=== PATIENT | male | born 1970 | race Caucasian/White ===

== ENCOUNTER 2024-10-29 16:55 | Emergency (ER) | payer OTHER ==
[2024-10-29] MEDS ORDERED: DUONEB 0.5-3 MG/3 ml Neb IH ONE (17:03)
[2024-10-29 17:07] VITALS: TEMP 97.5
[2024-10-29] MEDS: DUONEB 0.5-3 MG/3 ml Neb IH ONE (17:08)
--- NOTE | 2024-10-29 17:10 | ERPHSYRPT ---
<JASMYNE TAVERASAyush - Last Filed: 10/29/24 20:51> - History of Present Illness Source: patient Exam Limitations: no limitations Timing/Duration: day(s) (4) Activities at Onset: none Severity of Dyspnea-Max: severe Severity of Dyspnea-Current: severe Possible Cause: frequent episodes, chronic episodes Modifying Factors: Improves With: oxygen. Worsens With: activity, exertion Associated Symptoms: constant, cough, loss of appetite, wheezing, productive cough, No chest pain/discomfort, No edema, No fever, No insomnia, No hemoptysis <STAS LAST - Last Filed: 11/05/24 21:32> - History of Present Illness Time Seen by Provider: 10/29/24 17:10 Physician History: The patient, with pneumoconiosis, presents with shortness of breath. The patient has been experiencing worsening shortness of breath that began earlier in the week. He has not been as active recently due to the process of retiring, which he believes may have contributed to his symptoms. He is currently on oxygen, which alleviates the shortness of breath. He has no recent viral infections and has never required intubation for lung issues, only during a past shoulder surgery. 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 A PET scan was also clear. He does not use oxygen at home but uses a CPAP machine at night. He mentions a decrease in appetite, feeling hungry but deterred from cooking due to shortness of breath. He suspects he might be dehydrated or not eating properly. He is able to cough up a little phlegm, which appears normal with no blood present. (STAS LAST) Allergies/Adverse Reactions: azithromycin Allergy (Intermediate, Verified 10/30/24 05:26) had some redness to chest and increased shortness of breath after administration of this medication on 10/29/24 - unsure if this is the reason for his symptoms or not. he also got hydralizine around same time hydralazine Allergy (Intermediate, Verified 10/30/24 05:26) had some redness to chest and increased shortness of breath after administration of this medication on 10/29/24 Home Medications: Albuterol 8 gm Mdi Hfa [Ventolin Hfa MDI] 8 gm IH QID 10/29/24 [History] Fluticasone/Umeclidin/Vilanter [Trelegy Ellipta 200-62.5-25] 1 ea DAILY 10/29/24 [History] - Review of Systems All Other Systems: Reviewed and Negative <STAS LAST - Last Filed: 11/05/24 21:32> - Physical Exam General Appearance: moderate distress, thin Neck Exam: normal inspection Respiratory Exam: respiratory distress, airway intact, accessory muscle use, wheezing Cardiovascular/Chest Exam: normal heart sounds, regular rate/rhythm Abdominal/Gastrointestinal Exam: soft, No tenderness, No distention, No mass, No guarding, No rebound Neurologic Exam: alert, oriented x 3, cooperative Skin Exam: normal color, warm, dry, No rash SpO2 Interpretation: hypoxic SpO2: 67 O2 Delivery: Nasal Cannula <STAS LAST - Last Filed: 11/05/24 21:32> - Nursing Vital Signs Nursing Vital Signs: Initial Vital Signs Temperature 97.5 F 10/29/24 17:00 Pulse Rate 116 H 10/29/24 17:00 Respiratory Rate 32 H 10/29/24 17:00 Blood Pressure 174/125 10/29/24 17:00 O2 Sat by Pulse Oximetry 67 L 10/29/24 17:00 Pain Scale Pain Intensity 0 Procedures - Central Line Central Line Lumen: triple Central Line Procedure: chlorahexadine prep, sterile drapes applied, sterile dressing applied Central Line Postion: subclavian (R) Anesthesia: 2% Lidocaine cc's of anesthesia: 4 Complications: none Central Line Post Position: sutured, good blood return, position confirmed w/ CXR - Intubation Intubation Indications: respiratory distress Intubation Method: orotracheal Tube Size (cm): 7.5 Medications: Fentanyl, Propofol (Diprivan), Etomidate, Succinylcholine C-Spine: maintained Endotracheal Tube Confirmation: bilateral breath sounds Intubation Complications: no complications Performed By: ED Physician Post Intubation Xray: Yes <JASMYNE TAVERAS - Last Filed: 10/29/24 20:51> - Intubation Progress/X-ray Impression: 10/29/24 20:15 Good placement (JASMYNE TAVERAS) - Course Nursing assessment & vital signs reviewed: Yes EKG Interpreted by Me: RATE (100), Sinus Rhythm, Right [place] Deviation, NORMAL INTERVALS, NORMAL QRS, NORMAL ST-T <STAS LAST - Last Filed: 11/05/24 21:32> Ordered Tests: Medication Summary Discontinued Medications Generic Name Dose Route Start Last Admin Trade Name Shaye PRN Reason Stop Dose Admin Albuterol Sulfate Confirm 10/29/24 19:22 Albuterol Sulfate 2.5 Mg/3 Ml Neb Administered 10/29/24 19:23 Dose 2.5 mg IH .STK-MED ONE Albuterol Sulfate 2.5 mg 10/29/24 20:25 10/29/24 20:00 Albuterol Solution 2.5 Mg/0.5 Ml Ud Solution IH 10/29/24 20:26 2.5 mg STAT ONE Administration Albuterol/Ipratropium Confirm 10/29/24 17:03 Ipratropium/Albuterol Sulfate 3 Ml Ampul.Neb Administered 10/29/24 17:04 Dose 3 ml IH .STK-MED ONE Albuterol/Ipratropium 3 ml 10/29/24 17:07 10/29/24 17:08 Ipratropium/Albuterol Sulfate 3 Ml Ampul.Neb IH 10/29/24 17:08 3 ml STAT ONE Administration Methylprednisolone Sodium 0 mg 10/29/24 17:10 10/29/24 17:35 Succinate 125 mg/ Sterile IV 10/29/24 17:11 125 mg Water 2 ml STAT ONE Administration Diphenhydramine HCl Confirm 10/29/24 19:05 Diphenhydramine Hcl 50 Mg/Ml Vial Administered 10/29/24 19:06 Dose 50 mg .ROUTE .STK-MED ONE Etomidate 25 mg 10/29/24 19:31 Etomidate 20 Mg/10 Ml Amp IV 10/29/24 19:32 .STK-MED ONE Fentanyl Citrate Confirm 10/29/24 19:36 Fentanyl Citrate 100 Mcg/2 Ml* Vial Administered 10/29/24 19:37 Dose 100 mcg .ROUTE .STK-MED ONE Fentanyl Citrate Confirm 10/29/24 19:42 Fentanyl Citrate/Pf 500 Mcg/10 Ml Vial Administered 10/29/24 19:43 Dose 1,500 mcg IV .STK-MED ONE Hydralazine HCl 20 mg 10/29/24 18:38 10/29/24 18:51 Hydralazine Hcl 20 Mg/Ml Vial IV 10/29/24 18:39 20 mg STAT ONE Administration Hydralazine HCl Confirm 10/29/24 18:48 Hydralazine Hcl 20 Mg/Ml Vial Administered 10/29/24 18:49 Dose 20 mg .ROUTE .STK-MED ONE Sodium Chloride 1,000 mls @ 999 mls/hr 10/29/24 17:10 10/29/24 18:53 Sodium Chloride 0.9% 1000 Ml IV 10/29/24 18:10 Infused .Q1H1M STA Infusion Ceftriaxone Sodium 2 gm in 100 mls @ 200 mls/hr 10/29/24 17:10 10/29/24 18:06 Rocephin 2 Gm/100 Ml Nacl IV 10/29/24 17:39 Infused STAT ONE Infusion Azithromycin 500 mg in 250 mls @ 250 mls/hr 10/29/24 17:10 10/29/24 19:05 Zithromax 500 Mg/ 250 Ml Nacl Premix IV 10/29/24 18:09 0 mls/hr STAT STA 0 mls/hr Infusion Sodium Chloride Confirm 10/29/24 17:26 Sodium Chloride 0.9% 1000 Ml Administered 10/29/24 17:27 Dose 1,000 mls @ ud .ROUTE .STK-MED ONE Ceftriaxone Sodium Confirm 10/29/24 17:26 Rocephin 2 Gm/100 Ml Nacl Administered 10/29/24 17:27 Dose 2 gm in 100 mls @ ud IV .STK-MED ONE Azithromycin Confirm 10/29/24 18:08 Zithromax 500 Mg/ 250 Ml Nacl Premix Administered 10/29/24 18:09 Dose 500 mg in 250 mls @ ud IV .STK-MED ONE Sodium Chloride Confirm 10/29/24 19:30 Sodium Chloride 0.9% 1000 Ml Administered 10/29/24 19:31 Dose 1,000 mls @ ud .ROUTE .STK-MED ONE Propofol Confirm 10/29/24 19:40 Propofol 1000 Mg/100 Ml Bottle Administered 10/29/24 19:41 Dose 100 mls @ ud IV .STK-MED ONE Sodium Chloride Confirm 10/29/24 19:43 Sodium Chloride 0.9% 150 Ml Administered 10/29/24 19:44 Dose 150 mls @ ud IV .STK-MED ONE Propofol 100 mls @ 1.973 mls/hr 10/29/24 19:43 Propofol 1000 Mg/100 Ml Bottle IV 11/28/24 19:42 .Q24H PRN SEDATION FOR VENT Protocol 5 MCG/KG/MIN Norepinephrine/Dextrose Confirm 10/29/24 20:07 Norepinephrine 8 Mg/250 Ml-D5w Administered 10/29/24 20:08 Dose 8 mg in 250 mls @ IV .STK-MED ONE Cisatracurium Besylate 200 mg/ 270 mls @ ud 10/29/24 20:15 Dextrose IV 10/29/24 20:16 .STK-MED ONE Sodium Chloride 1,000 mls @ ud 10/29/24 19:10 Sodium Chloride 0.9% 1000 Ml IV 10/29/24 19:11 .STK-MED ONE Methylprednisolone Sodium Succinate Confirm 10/29/24 17:26 Methylprednis Sod Succ 125 Mg/2 Ml Vial Administered 10/29/24 17:27 Dose 125 mg .ROUTE .STK-MED ONE Midazolam HCl 4 mg 10/29/24 20:02 Midazolam Hcl 5 Mg/5 Ml Vial IV 10/29/24 20:03 .STK-MED ONE Ondansetron HCl Confirm 10/29/24 19:45 Ondansetron Hcl 4 Mg/2 Ml Vial Administered 10/29/24 19:46 Dose 4 mg .ROUTE .STK-MED ONE Sterile Water Confirm 10/29/24 17:26 Water For Injection,Sterile 10 Ml Vial Administered 10/29/24 17:27 Dose 10 ml IJ .STK-MED ONE Succinylcholine Chloride 200 mg 10/29/24 19:31 Succinylcholine Chloride 200mg/10 Ml Vial IJ 10/29/24 19:32 .STK-MED ONE Lab/Rad Data: Laboratory Result Diagrams 10/29/24 17:28 10/29/24 19:15 Laboratory Results 10/29/24 10/29/24 10/29/24 Range/Units 19:54 19:15 19:15 WBC (4.23-9.07) x10^3/uL RBC (4.63-6.08) x10^6/uL Hgb (13.7-17.5) g/dL Hct (40.1-51.0) % MCV (79.0-92.2) fL MCH (25.7-32.2) pg MCHC (32.3-36.5) g/dL RDW (11.6-14.4) % Plt Count (163-337) x10^3/uL MPV (9.4-12.4) fL Gran % (34.0-67.9) % Immature Gran % (Auto) (0.001-0.429) % Nucleat RBC Rel Count (0.00-0.2) % Eos # (Auto) (0.04-0.54) x10^3/uL Immature Gran # (Auto) (0.001-0.031) x10^3u/L Absolute Lymphs (auto) (1.32-3.57) x10^3/uL Absolute Monos (auto) (0.30-0.82) x10^3/uL Absolute Nucleated RBC (0.00-0.012) x10^3u/L Lymphocytes % (21.8-53.1) % Monocytes % (5.3-12.2) % Eosinophils % (0.8-7.0) % Basophils % (0.2-1.2) % Absolute Granulocytes (1.78-5.38) x10^3/uL Basophils # (0.01-0.08) x10^3/uL Puncture Site RIGHT BRACHIAL pCO2 46 H (35-45) mmHg pO2 255 H* (75-100) mmHg pO2/FiO2 Ratio 80.0 % Base Excess 0.7 (-2.0-2.0) O2 Saturation 97.4 (94-100) g/dF ABG pH 7.37 (7.35-7.45) ABG HCO3 26.6 (22-28) ABG O2 Sat (Measured) 100.0 (95-100) % Jesus Test NOT APPLICABLE VBG pH 7.29 L (7.32-7.42) VBG pCO2 at Pat Temp 60 H (42-55) mm/Hg VBG pO2 at Pat Temp 75 H (25-40) mm/Hg VBG HCO3 28.9 H (22-28) meq/L VBG O2 Sat (Robinson) 94.0 L (95-100) VBG Base Excess 0.6 (-2.0-2.0) VBG Hemoglobin 16.1 VBG Carboxyhemoglobin 2.0 (0.0-6.9) % T HGB A-a Gradient 401 a/A Ratio 0.39 Hemoglobin 15.0 Carboxyhemoglobin 1.8 (0.0-6.9) % THgb Methemoglobin 0.8 L (1.4-1.5) % POC Potassium 4.7 (3.5-5.1) Temperature 37.0 C POC O2 Flow Rate 100 % Vent Mode ac Vent Rate 16 /MIN Tidal Volume 600 cc PEEP 3 cmH2O Sodium (135-145) mmol/L Potassium 4.4 (3.5-5.1) mmol/L Chloride (98-107) mmol/L Carbon Dioxide (22-30) mmol/L Anion Gap (5-15) MEQ/L BUN (9-20) mg/dL Creatinine (0.66-1.25) mg/dL Estimated GFR ML/MIN Glucose (74-106) mg/dL Lactic Acid (0.4-2.0) Calcium (8.4-10.2) mg/dL Total Bilirubin (0.2-1.3) mg/dL AST (17-59) U/L ALT (0-50) U/L Alkaline Phosphatase (38-126) U/L Troponin I 0.073 H* (0.000-0.033) ng/mL Serum Total Protein (6.3-8.2) g/dL Albumin (3.5-5.0) g/dL Ur Random Creatinine MG/DL Urine Sodium (30-90) mmol/L Influenza Type A Ag (NEGATIVE) Influenza Type B Ag (NEGATIVE) RSV (PCR) (NEGATIVE) SARS-CoV-2 (PCR) (NEGATIVE) 10/29/24 10/29/24 10/29/24 Range/Units 19:15 19:15 17:33 WBC (4.23-9.07) x10^3/uL RBC (4.63-6.08) x10^6/uL Hgb (13.7-17.5) g/dL Hct (40.1-51.0) % MCV (79.0-92.2) fL MCH (25.7-32.2) pg MCHC (32.3-36.5) g/dL RDW (11.6-14.4) % Plt Count (163-337) x10^3/uL MPV (9.4-12.4) fL Gran % (34.0-67.9) % Immature Gran % (Auto) (0.001-0.429) % Nucleat RBC Rel Count (0.00-0.2) % Eos # (Auto) (0.04-0.54) x10^3/uL Immature Gran # (Auto) (0.001-0.031) x10^3u/L Absolute Lymphs (auto) (1.32-3.57) x10^3/uL Absolute Monos (auto) (0.30-0.82) x10^3/uL Absolute Nucleated RBC (0.00-0.012) x10^3u/L Lymphocytes % (21.8-53.1) % Monocytes % (5.3-12.2) % Eosinophils % (0.8-7.0) % Basophils % (0.2-1.2) % Absolute Granulocytes (1.78-5.38) x10^3/uL Basophils # (0.01-0.08) x10^3/uL Puncture Site pCO2 (35-45) mmHg pO2 (75-100) mmHg pO2/FiO2 Ratio % Base Excess (-2.0-2.0) O2 Saturation (94-100) g/dF ABG pH (7.35-7.45) ABG HCO3 (22-28) ABG O2 Sat (Measured) (95-100) % Jesus Test VBG pH (7.32-7.42) VBG pCO2 at Pat Temp (42-55) mm/Hg VBG pO2 at Pat Temp (25-40) mm/Hg VBG HCO3 (22-28) meq/L VBG O2 Sat (Robinson) (95-100) VBG Base Excess (-2.0-2.0) VBG Hemoglobin VBG Carboxyhemoglobin (0.0-6.9) % T HGB A-a Gradient a/A Ratio Hemoglobin Carboxyhemoglobin (0.0-6.9) % THgb Methemoglobin (1.4-1.5) % POC Potassium (3.5-5.1) Temperature C POC O2 Flow Rate % Vent Mode Vent Rate /MIN Tidal Volume cc PEEP cmH2O Sodium 123 L (135-145) mmol/L Potassium 4.6 (3.5-5.1) mmol/L Chloride 84 L (98-107) mmol/L Carbon Dioxide 29 (22-30) mmol/L Anion Gap 14.7 (5-15) MEQ/L BUN 9 (9-20) mg/dL Creatinine 0.43 L (0.66-1.25) mg/dL Estimated GFR 126.1 ML/MIN Glucose 146 H (74-106) mg/dL Lactic Acid (0.4-2.0) Calcium 7.9 L (8.4-10.2) mg/dL Total Bilirubin (0.2-1.3) mg/dL AST (17-59) U/L ALT (0-50) U/L Alkaline Phosphatase (38-126) U/L Troponin I 0.049 H* (0.000-0.033) ng/mL Serum Total Protein (6.3-8.2) g/dL Albumin (3.5-5.0) g/dL Ur Random Creatinine 167 MG/DL Urine Sodium 11 L (30-90) mmol/L Influenza Type A Ag (NEGATIVE) Influenza Type B Ag (NEGATIVE) RSV (PCR) (NEGATIVE) SARS-CoV-2 (PCR) (NEGATIVE) 10/29/24 10/29/24 10/29/24 Range/Units 17:30 17:30 17:28 WBC (4.23-9.07) x10^3/uL RBC (4.63-6.08) x10^6/uL Hgb (13.7-17.5) g/dL Hct (40.1-51.0) % MCV (79.0-92.2) fL MCH (25.7-32.2) pg MCHC (32.3-36.5) g/dL RDW (11.6-14.4) % Plt Count (163-337) x10^3/uL MPV (9.4-12.4) fL Gran % (34.0-67.9) % Immature Gran % (Auto) (0.001-0.429) % Nucleat RBC Rel Count (0.00-0.2) % Eos # (Auto) (0.04-0.54) x10^3/uL Immature Gran # (Auto) (0.001-0.031) x10^3u/L Absolute Lymphs (auto) (1.32-3.57) x10^3/uL Absolute Monos (auto) (0.30-0.82) x10^3/uL Absolute Nucleated RBC (0.00-0.012) x10^3u/L Lymphocytes % (21.8-53.1) % Monocytes % (5.3-12.2) % Eosinophils % (0.8-7.0) % Basophils % (0.2-1.2) % Absolute Granulocytes (1.78-5.38) x10^3/uL Basophils # (0.01-0.08) x10^3/uL Puncture Site pCO2 (35-45) mmHg pO2 (75-100) mmHg pO2/FiO2 Ratio 40.0 % Base Excess (-2.0-2.0) O2 Saturation (94-100) g/dF ABG pH (7.35-7.45) ABG HCO3 (22-28) ABG O2 Sat (Measured) (95-100) % Jesus Test VBG pH 7.33 (7.32-7.42) VBG pCO2 at Pat Temp 65 H* (42-55) mm/Hg VBG pO2 at Pat Temp 35 (25-40) mm/Hg VBG HCO3 34.3 H* (22-28) meq/L VBG O2 Sat (Robinson) 52.2 L (95-100) VBG Base Excess 5.6 H (-2.0-2.0) VBG Hemoglobin 16.4 VBG Carboxyhemoglobin 2.4 (0.0-6.9) % T HGB A-a Gradient a/A Ratio Hemoglobin Carboxyhemoglobin (0.0-6.9) % THgb Methemoglobin (1.4-1.5) % POC Potassium 4.6 (3.5-5.1) Temperature C POC O2 Flow Rate % Vent Mode Vent Rate /MIN Tidal Volume cc PEEP cmH2O Sodium (135-145) mmol/L Potassium (3.5-5.1) mmol/L Chloride (98-107) mmol/L Carbon Dioxide (22-30) mmol/L Anion Gap (5-15) MEQ/L BUN (9-20) mg/dL Creatinine (0.66-1.25) mg/dL Estimated GFR ML/MIN Glucose (74-106) mg/dL Lactic Acid 2.0 (0.4-2.0) Calcium (8.4-10.2) mg/dL Total Bilirubin (0.2-1.3) mg/dL AST (17-59) U/L ALT (0-50) U/L Alkaline Phosphatase (38-126) U/L Troponin I (0.000-0.033) ng/mL Serum Total Protein (6.3-8.2) g/dL Albumin (3.5-5.0) g/dL Ur Random Creatinine MG/DL Urine Sodium (30-90) mmol/L Influenza Type A Ag NEGATIVE (NEGATIVE) Influenza Type B Ag NEGATIVE (NEGATIVE) RSV (PCR) NEGATIVE (NEGATIVE) SARS-CoV-2 (PCR) NEGATIVE (NEGATIVE) 10/29/24 10/29/24 Range/Units 17:28 17:28 WBC 9.6 H (4.23-9.07) x10^3/uL RBC 5.25 (4.63-6.08) x10^6/uL Hgb 15.5 (13.7-17.5) g/dL Hct 43.6 (40.1-51.0) % MCV 83.0 (79.0-92.2) fL MCH 29.5 (25.7-32.2) pg MCHC 35.6 (32.3-36.5) g/dL RDW 12.4 (11.6-14.4) % Plt Count 356 H (163-337) x10^3/uL MPV 10.0 (9.4-12.4) fL Gran % 81.4 H (34.0-67.9) % Immature Gran % (Auto) 0.5 H (0.001-0.429) % Nucleat RBC Rel Count 0.0 (0.00-0.2) % Eos # (Auto) 0.04 (0.04-0.54) x10^3/uL Immature Gran # (Auto) 0.05 H (0.001-0.031) x10^3u/L Absolute Lymphs (auto) 0.62 L (1.32-3.57) x10^3/uL Absolute Monos (auto) 1.05 H (0.30-0.82) x10^3/uL Absolute Nucleated RBC 0.00 (0.00-0.012) x10^3u/L Lymphocytes % 6.5 L (21.8-53.1) % Monocytes % 10.9 (5.3-12.2) % Eosinophils % 0.4 L (0.8-7.0) % Basophils % 0.3 (0.2-1.2) % Absolute Granulocytes 7.82 H (1.78-5.38) x10^3/uL Basophils # 0.03 (0.01-0.08) x10^3/uL Puncture Site pCO2 (35-45) mmHg pO2 (75-100) mmHg pO2/FiO2 Ratio % Base Excess (-2.0-2.0) O2 Saturation (94-100) g/dF ABG pH (7.35-7.45) ABG HCO3 (22-28) ABG O2 Sat (Measured) (95-100) % Jesus Test VBG pH (7.32-7.42) VBG pCO2 at Pat Temp (42-55) mm/Hg VBG pO2 at Pat Temp (25-40) mm/Hg VBG HCO3 (22-28) meq/L VBG O2 Sat (Robinson) (95-100) VBG Base Excess (-2.0-2.0) VBG Hemoglobin VBG Carboxyhemoglobin (0.0-6.9) % T HGB A-a Gradient a/A Ratio Hemoglobin Carboxyhemoglobin (0.0-6.9) % THgb Methemoglobin (1.4-1.5) % POC Potassium (3.5-5.1) Temperature C POC O2 Flow Rate % Vent Mode Vent Rate /MIN Tidal Volume cc PEEP cmH2O Sodium 121 L (135-145) mmol/L Potassium 4.6 (3.5-5.1) mmol/L Chloride 78 L (98-107) mmol/L Carbon Dioxide 34 H (22-30) mmol/L Anion Gap 13.9 (5-15) MEQ/L BUN 10 (9-20) mg/dL Creatinine 0.57 L (0.66-1.25) mg/dL Estimated GFR 115.8 ML/MIN Glucose 133 H (74-106) mg/dL Lactic Acid (0.4-2.0) Calcium 8.4 (8.4-10.2) mg/dL Total Bilirubin 0.70 (0.2-1.3) mg/dL AST 51 (17-59) U/L ALT 34 (0-50) U/L Alkaline Phosphatase 66 (38-126) U/L Troponin I (0.000-0.033) ng/mL Serum Total Protein 7.2 (6.3-8.2) g/dL Albumin 4.2 (3.5-5.0) g/dL Ur Random Creatinine MG/DL Urine Sodium (30-90) mmol/L Influenza Type A Ag (NEGATIVE) Influenza Type B Ag (NEGATIVE) RSV (PCR) (NEGATIVE) SARS-CoV-2 (PCR) (NEGATIVE) <JASMYNE TAVERAS - Last Filed: 10/29/24 20:51> - Progress Progress: improved Air Movement: fair Blood Culture(s) Obtained: No Antibiotics given: Yes <STAS LAST - Last Filed: 11/05/24 21:32> - Progress Progress Note: Patient's condition rapidly deteriorated it happened a few minutes after he got Apresoline. But it seemed to be more lung function I think his CO2 was increasing and it was probably he was getting fatigued. I went ahead and did an intubation. Also a central line was placed.He has been transferred to [facility]. Accepted the patient. 10/29/24 20:52 (JASMYNE TAVERAS) 10/29/24 18:35 Shortness of Breath Acute exacerbation over the past week. No recent viral illness. Pneumoconiosis with calcified nodules, monitored biannually. Last CT in July showed no changes. Currently on CPAP at night, no home oxygen. Differential includes pneumonia, dehydration, and exacerbation of underlying lung condition. Discussed treatment progression: oxygen therapy, BiPAP if needed, and intubation as a last resort. Explained risks and benefits of each step. - Order CT chest - Administer IV fluids - Start empirical antibiotics (Rocephin/Azithromycin) - Administer steroids (SoluMedrol 125mg) - Continue breathing treatments (STAS LAST) - Departure Departure Disposition: Transfer Critical Care Time: Yes Critical Care Time(excluding separately billable procedures): Critical 30-74 mins <JASMYNE TAVERAS - Last Filed: 10/29/24 20:51> <STAS LAST - Last Filed: 11/05/24 21:32> - Departure Clinical Impression: Black lung disease, Acute hypoxic respiratory failure, Compensated respiratory acidosis, Hyponatremia Condition: Serious Referrals: GONSALO VILCHIS [Primary Care Provider] - Follow up/PCP as directed
[2024-10-29] MEDS ORDERED: Sodium Chloride 0.9% 1000 ML 1,000 ML ONE ×2 (17:26→19:30)
[2024-10-29] MEDS ORDERED: Sterile H2O 10 ml IJ ONE (17:26)
[2024-10-29] MEDS ORDERED: ROCEPHIN 2 GM/100 ML NACL 2 GM/100 ML IVPB IV ONE (17:26)
[2024-10-29] MEDS ORDERED: solu-MEDROL ONE (17:26)
[2024-10-29] MEDS: Sodium Chloride 0.9% 1000 ML 1,000 ML IV STA (17:31)
[2024-10-29 17:32] LABS: VBG BASE EXCESS 5.6 (-2.0-2.0); VBG CARBOXYHEMOGLOBIN 2.4 % T HGB (0.0-6.9); VBG HCO3- 34.3 meq/L (22-28); VBG HEMOGLOBIN 16.4; VBG O2 SATURATION 52.2 (95-100); VBG POTASSIUM 4.6 (3.5-5.1); VBG pH 7.33 (7.32-7.42)
[2024-10-29 17:35] LABS: Absolute Neutrophil Ct (ANC) 7.82 x10^3/uL (1.78-5.38); BASOPHIL % 0.3 % (0.2-1.2); Basophil (Absolute #) 0.03 x10^3/uL (0.01-0.08); Eosinophil % 0.4 % (0.8-7.0); Eosinophil (Absolute #) 0.04 x10^3/uL (0.04-0.54); Hematocrit 43.6 % (40.1-51.0); Hemoglobin 15.5 g/dL (13.7-17.5); IMMATURE GRAN # 0.05 x10^3u/L (0.001-0.031); IMMATURE GRAN % 0.5 % (0.001-0.429); Lymphocyte (Absolute #) 0.62 x10^3/uL (1.32-3.57); Lymphocytes % 6.5 % (21.8-53.1); Mean Corpuscular Hemoglobin 29.5 pg (25.7-32.2); Mean Corpuscular Hgb Concent. 35.6 g/dL (32.3-36.5); Monocyte (Absolute #) 1.05 x10^3/uL (0.30-0.82); Monocytes % 10.9 % (5.3-12.2); Neutrophil % 81.4 % (34.0-67.9); Platelet Count 356 x10^3/uL (163-337); Red Blood Count 5.25 x10^6/uL (4.63-6.08); Red Cell Distribution Width 12.4 % (11.6-14.4); White Blood Count 9.6 x10^3/uL (4.23-9.07)
[2024-10-29] MEDS: solu-MEDROL 125 MG, Sterile H2O 10 ml 2 ML IV ONE (17:35)
[2024-10-29] MEDS: ROCEPHIN 2 GM/100 ML NACL 2 GM/100 ML IVPB IV ONE (17:35)
[2024-10-29 17:50] LABS: ALBUMIN 4.2 g/dL (3.5-5.0); ANION GAP 13.9 MEQ/L (5-15); BILIRUBIN,TOTAL 0.7 mg/dL (0.2-1.3); Calcium 8.4 mg/dL (8.4-10.2); Creatinine 1 0.57 mg/dL (0.66-1.25); EST GLOMERULAR FILTRATION RATE 115.8 ML/MIN; Potassium 4.6 mmol/L (3.5-5.1); Total Protein 7.2 g/dL (6.3-8.2)
[2024-10-29] MEDS ORDERED: Zithromax 500 MG/ 250 ML NaCl Premix 500 MG/250 ML IVPB IV ONE (18:08)
[2024-10-29 18:11] LABS: INFLUENZA A NEGATIVE (NEGATIVE); INFLUENZA B NEGATIVE (NEGATIVE); RESPIRATORY SYNCTIAL VIRUS NEGATIVE (NEGATIVE); SARS-CoV-2 Xpert Express NEGATIVE (NEGATIVE)
[2024-10-29] MEDS: Zithromax 500 MG/ 250 ML NaCl Premix 500 MG/250 ML IVPB IV STA (18:23)
[2024-10-29] MEDS ORDERED: APRESOLINE 20 MG/ML INJ ONE (18:48)
[2024-10-29] MEDS: APRESOLINE 20 MG/ML INJ IV ONE (18:51)
[2024-10-29] MEDS ORDERED: BENADRYL 50 MG/ML ONE (19:05)
[2024-10-29] MEDS ORDERED: Sodium Chloride 0.9% 1000 ML 1,000 ML IV ONE (19:10)
[2024-10-29] MEDS ORDERED: PROVENTIL 2.5 MG/3 ML NEB IH ONE (19:22)
--- NOTE | 2024-10-29 19:23 | XRAY ---
CLINICAL HISTORY: sob COMPARISON: Compared to prior CT chest dated 08/01/2024, 07/19/2023. TECHNIQUE: Contiguous axial CT images of the chest were acquired without administration of intravenous contrast. Coronal and sagittal reconstructions were obtained. One of the following dose reduction techniques was utilized for this exam: Automated exposure control, adjustment of the mA and/or kV according to patient size, use of iterative reconstruction. FINDINGS: Lungs: Bilateral lung gaston, large calcified masses and nodules with irregular outline and hilar retraction, directed toward hilum, volume loss at superior segment of right and left lower lobes and left apicoposterior segment. Bilateral fibrotic bands. Ground-glass opacities in the right middle lobe Bilateral pleural effusion, moderate in the right, minimal in the left. Mediastinum: The mediastinum is normal in size and contour. Multiple coarse calcified lymph nodes The heart size is within normal limits. Hilar Structures: The hilar structures appear normal without enlargement or abnormality. Trachea and Main Bronchi: The trachea and main bronchi are patent without evidence of obstruction or abnormality. Chest Wall: The chest wall is unremarkable with no evidence of soft tissue or bony abnormalities. Upper Abdomen: Tiny hyperdense focus at the region of the julia hepatis. Left mid zonal hypodesne lesion 3x4 cm previously diagnosed as a simple renal cyst. (unchanged) Bones: Visualized osseous structures are normal, no evidence of fracture or lytic/sclerotic lesions. IMPRESSION: 1. No significant interval change in the bilateral calcified masses and nodules, and the associated fibrotic changes, which may denote progressive massive fibrosis. 2. Interval progression of the ground-glass opacities in the right middle lobe, may be part of the abovementioned pathology versus new acute infectious process. 3. Bilateral pleural effusion, moderate in the right, minimal in the left. (new findings) Electronically Signed by: Courtney Baez MD. (10/29/2024 19:17:13 EST)
[2024-10-29 19:26] LABS: Sodium, Urine 11 mmol/L (30-90)
[2024-10-29 19:30] LABS: ANION GAP 14.7 MEQ/L (5-15); Calcium 7.9 mg/dL (8.4-10.2); Creatinine 1 0.43 mg/dL (0.66-1.25); EST GLOMERULAR FILTRATION RATE 126.1 ML/MIN; Potassium 4.6 mmol/L (3.5-5.1)
[2024-10-29] MEDS ORDERED: Amidate 20 MG/10 ML IV ONE (19:31)
[2024-10-29] MEDS ORDERED: Quelicin Fliptop 200 MG/10 ML IJ ONE (19:31)
[2024-10-29] MEDS ORDERED: SUBLIMAZE 100 MCG/2 ML ONE (19:36)
[2024-10-29] MEDS ORDERED: Propofol 1000 mg/100 ml Bottle 100 ML IV ONE (19:40)
[2024-10-29] MEDS ORDERED: FENTANYL 500 MCG/10 ML VIAL IV ONE (19:42)
[2024-10-29] MEDS ORDERED: Propofol 1000 mg/100 ml Bottle 100 ML IV PRN (19:43)
[2024-10-29] MEDS ORDERED: Sodium Chloride 0.9% 150 ML 150 ML IV ONE (19:43)
[2024-10-29] MEDS ORDERED: Zofran 4 MG/2 ML VIAL ONE (19:45)
[2024-10-29 19:48] LABS: CREATININE,URINE RANDOM 167 MG/DL
[2024-10-29] MEDS: PROVENTIL Solution 2.5 MG/0.5 ML IH ONE (20:00)
[2024-10-29] MEDS ORDERED: VERSED 5 MG/5 ML IV ONE (20:02)
[2024-10-29] MEDS ORDERED: NOREPINEPHRINE 8 MG/250 ML-D5W 8 MG/250 ML PLAST..BAG IV ONE (20:07)
[2024-10-29] MEDS ORDERED: NIMBEX IV ONE (20:15)
[2024-10-29] MEDS ORDERED: [UNRECOGNIZED DRUG - OTHER] IV ONE (20:15)
[2024-10-29 20:21] VITALS: PULSE 129
[2024-10-29 20:23] LABS: A-aADO2 401; ABG POTASSIUM 4.4 (3.5-5.1); ABG SITE RIGHT BRACHIAL; ARTERIAL BLOOD GAS BASE EXCESS 0.7 (-2.0-2.0); ARTERIAL BLOOD GAS FIO2 100 %; ARTERIAL BLOOD GAS PCO2 46 mmHg (35-45); ARTERIAL BLOOD GAS PO2 255 mmHg (75-100); ARTERIAL BLOOD GAS pH 7.37 (7.35-7.45); CARBOXYHEMOGLOBIN 1.8 % THgb (0.0-6.9); HCO3- 26.6 (22-28); HGB O2 SAT 97.4 g/dF (94-100); Methhemoglobin 0.8 % (1.4-1.5); paO2 pAO1 0.39
[2024-10-29 20:24] LABS: ARTERIAL BLD GAS TIDAL VOLUME 600 cc; ARTERIAL BLOOD GAS PEEP 3 cmH2O; ARTERIAL BLOOD GAS VENT MODE ac; ARTERIAL BLOOD GAS VENT RATE 16 /MIN
[2024-10-29 20:24] LABS: VBG BASE EXCESS 0.6 (-2.0-2.0); VBG HCO3- 28.9 meq/L (22-28); VBG HEMOGLOBIN 16.1; VBG POTASSIUM 4.7 (3.5-5.1)
[2024-10-29 20:25] LABS: VBG pH 7.29 (7.32-7.42)
[2024-10-29 21:01] VITALS: BP 109/79; RESP 27
--- NOTE | 2024-10-30 08:39 | XRAY ---
Indication: Central line placement. Comparison: Taken earlier in the day. Portable chest demonstrates new right subclavian central venous access catheter with tip projecting over SVC. No pneumothorax. Remaining chest unchanged again with endotracheal tube/NG tube in situ, diffuse bilateral consolidating/nonconsolidating airspace disease, bilateral effusions, and bilateral perihilar irregular/spiculated opacities. Heart not enlarged.
--- NOTE | 2024-10-30 08:39 | XRAY ---
Indication: Intubation. Comparison: July 15, 2023 Portable chest demonstrates new endotracheal tube tip approximately 5 cm above kwame and new NG tube traversing chest with chest presumed in stomach again. Presumed recurrent diffuse bilateral consolidating/nonconsolidating airspace disease with new moderate bilateral effusions. Grossly stable right perihilar and left suprahilar irregular/spiculated opacities. Heart not enlarged. Bony thorax intact.
[2024-11-05 21:33] VITALS: O2SAT 67
== END 2024-10-29 21:00 | disposition short-term general hospital (02) ==
LOC: ED 16:55
DX: J60 Coalworker's pneumoconiosis (principal); J96.01 Acute respiratory failure with hypoxia; J96.02 Acute respiratory failure with hypercapnia; E87.1 Hypo-osmolality and hyponatremia; Z79.899 Other long term (current) drug therapy
CPT/HCPCS: 0241U; 31500; 36415; 36556; 36600; 51702; 71045; 71250; 80048; 80053; 82375; 82570; 82803; 82805; 83605; 84300; 84484; 85025; 93005; 94002; 94640; 96365; 96367; 96375; 99291; 96374; 99285; J0330; J0360; J0456; J0696; J1200; J2250; J2405; J2704; J2919; J3010; J7609; A9270-GY